=== PATIENT | female | born 1965 | race African-American/Black ===

== ENCOUNTER 2019-01-31 21:07 | Emergency (ER) | payer MEDICAID, OTHER ==
[~2019-01-31] VITALS: Ht 170.2 cm; Wt 65.8 kg
[~2019-01-31 21:07] MED LIST: ATENOLOL50 MG ORAL; BACTRIM DS TAB1 EAC1 ORAL; BACTRIM-DS1 EA ORAL; CEPHALEXIN500 MG ORAL; HYDROCHLOROTH12.5 M2 ORAL; HYDROCODON-ACE1 EA15 ORAL; NKM; PERCOCET 5-3251 EACH PO
--- NOTE | 2019-01-31 21:38 | Emergency Room Report ---
History of Present Illness General Chief Complaint: Hypertension Source: Patient Present Illness HPI Presents with 1 week of headache, left arm pain and a strange feeling in her chest. She has been off of blood pressure medicine for over a year. She used to take atenolol and clonidine. She just ran out and stopped taking it. The headache is frontal, pounding and 8/10 and constant. The feeling in her arm is intermittent and does not seem to be brought on by exertion. She denies any previous cardiac disease. No fevers, chills, productive cough, nausea, vomiting , diarrhea, dysuria. The patient is postmenopausal and has some irregular bleeding that is intermittent. She has not been evaluated for that. Increased stress in her life. Her son was arrested yesterday. She denies any suicidal or homicidal ideation. Allergies: Coded Allergies: No Known Allergies (Unverified , 01/31/19) Patient History Past Medical History: see triage record Social History: Reports: smoking, drug use - CT toxicology screen Social History Narrative Boyfriend brought her - friend of son staying with her (who stole RN car and was arrested) Reviewed Nursing Documentation: PMH: Agreed; PSxH: Agreed Nursing Documentation-PMH Past Medical History: No History, Except For Hx Cardiac Problems: No Hx Hypertension: Yes Hx COPD: No - bronchitis Hx Cancer: No Hx Gastrointestinal Problems: Yes Hx Neurological Problems: No Review of Systems All Other Systems: negative except mentioned in HPI Physical Exam Vital Signs Date Time Temp Pulse Resp B/P (MAP) Pulse Ox O2 Delivery O2 Flow Rate FiO2 01/31/19 21:16 98.4 88 18 206/113 (144) 94 Room Air Sp02 EP Interpretation: reviewed, normal General Appearance: well appearing, no apparent distress, GCS 15, other - Smells of tobacco Head: normocephalic Eyes: bilateral eye normal inspection, bilateral eye PERRL ENT: moist mucus membranes - Poor dentition Neck: supple Respiratory: chest non-tender, lungs clear, normal breath sounds Cardiovascular #1: regular rate, rhythm, no edema Cardiovascular #2: 2+ radial (R) Gastrointestinal: normal inspection, normal bowel sounds, non tender, no mass, non-distended Musculoskeletal: back normal, gait/station normal, normal range of motion Neurologic: alert, oriented x3, film coater III-XII nml as tested, motor strength/tone normal, cerebellar normal, normal gait, speech normal Psychiatric: mood/affect normal Skin: normal inspection, warm/dry Medical Decision Making Diagnostic Impression: Primary Impression: Hypertension Qualified Codes: I10 - Essential (primary) hypertension Additional Impressions: UTI (urinary tract infection) Qualified Codes: N30.00 - Acute cystitis without hematuria Renal insufficiency Substance abuse ER Course Patient presents with chest pain rating to her left arm, headache and uncontrolled hypertension. Differential includes hypertensive urgency, malignant hypertension, renal failure, acute myocardial infarction amongst others. The patient will be evaluated with EKG, chest x-ray and labs. The patient will be treated with Reglan, Benadryl, Toradol, atenolol and clonidine. EKG without injury. Chest x-ray no infiltrates normal heart size. Labs significant for normal CBC, CMP with elevated creatinine, BNP minimally elevated , urinalysis with pyuria. Keflex given. Pain is improved. Blood pressure improved. Discussed with patient laboratory findings as well as the need to stop drugs. Patient stable for outpatient observation and treatment. Laboratory Tests Test 01/31/19 21:45 01/31/19 23:55 White Blood Count 7.0 K/UL (4.8-10.8) Red Blood Count 4.43 M/UL (4.20-5.40) Hemoglobin 13.0 G/DL (12.0-16.0) Hematocrit 37.7 % (37.0-47.0) Mean Corpuscular Volume 85 FL (80-99) Mean Corpuscular Hemoglobin 29.3 PG (27.0-31.0) Mean Corpuscular Hemoglobin Concent 34.4 G/DL (32.0-36.0) Red Cell Distribution Width 10.8 % (11.6-14.8) L Platelet Count 220 K/UL (150-450) Mean Platelet Volume 7.0 FL (6.5-10.1) Neutrophils (%) (Auto) 66.3 % (45.0-75.0) Lymphocytes (%) (Auto) 25.5 % (20.0-45.0) Monocytes (%) (Auto) 5.8 % (1.0-10.0) Eosinophils (%) (Auto) 1.3 % (0.0-3.0) Basophils (%) (Auto) 1.2 % (0.0-2.0) Prothrombin Time 10.4 SEC (9.30-11.50) Prothrombin Time INR 1.0 (0.9-1.1) PTT 28 SEC (23-33) Sodium Level 143 MMOL/L (136-145) Potassium Level 3.4 MMOL/L (3.5-5.1) L Chloride Level 102 MMOL/L (98-107) Carbon Dioxide Level 31 MMOL/L (21-32) Anion Gap 10 mmol/L (5-15) Blood Urea Nitrogen 16 mg/dL (7-18) Creatinine 1.7 MG/DL (0.55-1.30) H Estimate Glomerular Filtration Rate 38.2 mL/min (>60) Glucose Level 96 MG/DL (74-106) Calcium Level 9.2 MG/DL (8.5-10.1) Total Bilirubin 0.4 MG/DL (0.2-1.0) Aspartate Amino Transferase (AST) 21 U/L (15-37) Alanine Aminotransferase (ALT) 28 U/L (12-78) Alkaline Phosphatase 180 U/L (46-116) H Total Creatine Kinase 111 U/L (26-308) Troponin I 0.000 ng/mL (0.000-0.056) Pro-B-Type Natriuretic Peptide 191 pg/mL (0-125) H Total Protein 7.9 G/DL (6.4-8.2) Albumin 4.3 G/DL (3.4-5.0) Globulin 3.6 g/dL Albumin/Globulin Ratio 1.2 (1.0-2.7) Urine Color Pale yellow Urine Appearance Slightly cloudy Urine pH 7 (4.5-8.0) Urine Specific [place] 1.010 (1.005-1.035) Urine Protein 2+ (NEGATIVE) H Urine Glucose (UA) Negative (NEGATIVE) Urine Ketones Negative (NEGATIVE) Urine Blood 3+ (NEGATIVE) H Urine Nitrite Negative (NEGATIVE) Urine Bilirubin Negative (NEGATIVE) Urine Urobilinogen 1 MG/DL (0.0-1.0) H Urine Leukocyte Esterase 3+ (NEGATIVE) H Urine RBC 20-30 /HPF (0 - 2) H Urine WBC Tntc /HPF (0 - 2) H Urine Squamous Epithelial Cells Few /LPF (NONE/OCC) Urine Bacteria Many /HPF (NONE) H Urine Opiates Screen Negative (NEGATIVE) Urine Barbiturates Screen Negative (NEGATIVE) Phencyclidine (PCP) Screen Negative (NEGATIVE) Urine Amphetamines Screen Negative (NEGATIVE) Urine Benzodiazepines Screen Negative (NEGATIVE) Urine Cocaine Screen Positive (NEGATIVE) H Urine Marijuana (THC) Screen Positive (NEGATIVE) H EKG Diagnostic Results Rate: normal Rhythm: NSR ST Segments: no acute changes Rhythm Strip Diag. Results EP Interpretation: yes Rhythm: NSR, no PVC's, no ectopy Chest X-Ray Diagnostic Results Chest X-Ray Diagnostic Results : Chest X-Ray Ordered: Yes # of Views/Limited/Complete: 1 View Indication: Other EP Interpretation: Yes Interpretation: no consolidation, no effusion, no pneumothorax Impression: No acute disease Electronically Signed by: Electronically signed by Kelby Bagley MD Last Vital Signs Date Time Temp Pulse Resp B/P (MAP) Pulse Ox O2 Delivery O2 Flow Rate FiO2 02/01/19 03:02 98.4 67 14 152/88 100 Room Air Status: improved Disposition: HOME, SELF-CARE Condition: Improved Scripts Albuterol Sulfate* (ALBUTEROL SULFATE MDI*) 8.5 Gm Hfa.aer.ad 2 PUFF INH Q6H, #1 EA 0 Refills Prov: Kelby Bagley MD 02/01/19 Cephalexin* (KEFLEX*) 500 Mg Capsule 500 MG ORAL EVERY 6 HOURS, #28 CAP Prov: Kelby Bagley MD 02/01/19 Clonidine Hcl* (CATAPRES*) 0.1 Mg Tablet 0.1 MG ORAL EVERY 12 HOURS, #60 TAB Prov: Kelby Bagley MD 02/01/19 Atenolol* (TENORMIN*) 50 Mg Tablet 50 MG ORAL DAILY, #30 TAB Prov: Kelby Bagley MD 02/01/19 Kelby Bagley MD Jan 31, 2019 21:38
[2019-01-31 21:45] VITALS: BP 185/111
[2019-01-31] MEDS ORDERED: Ketorolac 30mg Inj IV ONE (21:45)
[2019-01-31] MEDS ORDERED: DiphenhydrAMINE 50mg/ml Inj IVP ONE (21:45)
[2019-01-31] MEDS ORDERED: Metoclopramide 10mg/2ml Inj IVP ONE (21:45)
--- NOTE | 2019-01-31 21:45 | NUR ---
ED Nurse Note: RECIEVED PT FROM HOME, HERE WITH C/O HEADACHE WITH DIZZINESS AND HTN, PT HAS BEEN NON-COMPLIANT WITH MEDS FOR ABOUT 3 MONTHS, DENIES CP, OR SOB, PT IS AMBULATORY AND UNDER A LOT OF STRESS, PT IS CURRENTLY ON PHONE WITH SON IN [facility]ITENTI[facility] TODAY, DENIES ANY OTHER COMPLAINTS, WILL WAIT FOR PT TO GOWN TO PLACE ON CARDIAC MONITORING, PT ASK FOR A MINUTE TO GET SELF TOGETHER FIRST.
[2019-01-31 21:57] LABS: BASOPHILS % (AUTO) 1.2 % (0.0-2.0); EOSINOPHILS % (AUTO) 1.3 % (0.0-3.0); HEMATOCRIT 37.7 % (37.0-47.0); LYMPHOCYTES % (AUTO) 25.5 % (20.0-45.0); MEAN CORPUSCULAR VOLUME 85 FL (80-99); MONOCYTES % (AUTO) 5.8 % (1.0-10.0); NEUTROPHILS % (AUTO) 66.3 % (45.0-75.0); PLATELET COUNT 220 K/UL (150-450); RED BLOOD COUNT 4.43 M/UL (4.20-5.40); RED CELL DISTRIBUTION WIDTH 10.8 % (11.6-14.8)
[2019-01-31 22:07] LABS: ANION GAP 10 mmol/L (5-15); BLOOD UREA NITROGEN 16 mg/dL (7-18); CALCIUM 9.2 MG/DL (8.5-10.1); CARBON DIOXIDE 31 MMOL/L (21-32); CHLORIDE 102 MMOL/L (98-107); CREATININE 1.7 MG/DL (0.55-1.30); POTASSIUM 3.4 MMOL/L (3.5-5.1); SODIUM 143 MMOL/L (136-145)
[2019-01-31 22:18] LABS: ALANINE AMINOTRANSFERASE 28 U/L (12-78); ALBUMIN 4.3 G/DL (3.4-5.0); ALBUMIN/GLOBULIN RATIO 1.2 (1.0-2.7); ALKALINE PHOSPHATASE 180 U/L (46-116); ASPARTATE AMINO TRANSFERASE 21 U/L (15-37); BILIRUBIN,TOTAL 0.4 MG/DL (0.2-1.0); CREATINE KINASE 111 U/L (26-308)
--- NOTE | 2019-01-31 23:15 | NUR ---
ED Nurse Note: MEDS GIVEN FOR PAIN EFFECTIVE WITH HEADACHE AT 10/28, B/P IS DECREASING, IV SITE PATENT, PT RESTING IN BED QUIETLY ON MONITORING, WILL CONTINUE TO CLOSELY MONITOR.
[2019-01-31 23:30] VITALS: BP 160/89
[2019-02-01 00:03] LABS: APPEARANCE,URINE SLIGHTLY CLOUDY; BILIRUBIN, URINE NEGATIVE (NEGATIVE); COLOR,URINE PALE YELLOW; GLUCOSE, URINE (UA) NEGATIVE (NEGATIVE); KETONES,URINE NEGATIVE (NEGATIVE); LEUKOCYTE ESTERASE ,URINE 3+ (NEGATIVE); NITRITE,URINE NEGATIVE (NEGATIVE); PH,URINE 7 (4.5-8.0); PROTEIN,URINE 2+ (NEGATIVE); UROBILINOGEN,URINE 1 MG/DL (0.0-1.0)
[2019-02-01] MEDS ORDERED: Cephalexin 500mg cap ORAL ONE (01:00)
[2019-02-01 01:30] VITALS: BP 159/95
[2019-02-01] MEDS ORDERED: ATENOLOL50 MG ORAL (02:46)
[2019-02-01] MEDS ORDERED: CATAPRES0.1 MG ORAL (02:46)
[2019-02-01] MEDS ORDERED: CEPHALEXIN500 MG ORAL (02:55)
[2019-02-01] MEDS ORDERED: ALBUTEROL SULF8.5 GM INH (02:55)
[2019-02-01 03:02] VITALS: BP 152/88
--- NOTE | 2019-02-01 03:02 | NUR ---
ER DISCHARGE NOTE: Patient is cleared to be discharged per ERMD, pt is aox4, on room air, with stable vital signs. pt was given dc and prescription instructions, pt was able to verbalize understanding, pt id band and iv site removed without complications. pt is able to ambulate with steady gait. pt took all belongings.
--- NOTE | 2019-02-01 09:51 | Diagnostic Imaging Report ---
Indication: Chest pain Technique: One view of the chest Comparison: none Findings: The heart is upper limits normal in size. Lungs and pleural spaces are clear. Impression: No acute process
--- NOTE | 2019-02-03 13:51 | Cardiology Report ---
APPROVED REPORT EKG Measurement Heart [id number] Normal sinus rhythm Normal ECG
== END 2019-02-01 03:03 | disposition home or self-care (01) ==
LOC: EMR 21:31
DX: I10 Essential (primary) hypertension (principal); N30.00 Acute cystitis without hematuria; N28.9 Disorder of kidney and ureter, unspecified; F19.10 Other psychoactive substance abuse, uncomplicated; R51 Headache
CPT/HCPCS: 36415; 71045; 80053; 80307; 81003; 82550; 83880; 84484; 85025; 85610; 85730; 87086; 93005; 96374; 96375; 99284; J1200; J1885; J2765

== ENCOUNTER 2020-01-17 20:55 | Inpatient (IN) | payer MEDICAID ==
[~2020-01-17] VITALS: Ht 170.2 cm; Wt 68.0 kg
[~2020-01-17 20:55] MED LIST changes: +ALBUTEROL SULF8.5 GM INH; +CATAPRES0.1 MG ORAL
[2020-01-17 21:10] VITALS: BP 149/103
--- NOTE | 2020-01-17 21:23 | Emergency Room Report ---
History of Present Illness General Chief Complaint: General Complaint Source: Patient Present Illness HPI Patient is a 54-year-old female denies any significant past medical history who presents to the ER complaining of slurred speech and drooling since yesterday over 24 hours ago. Patient complains of generalized weakness but denies any focal weakness. Patient states that she did cocaine 3 days prior to the onset of her symptoms. She denies any headache or blurry vision. She denies any history of similar symptoms. Patient states that she can walk without any difficulty. She denies any dizziness. She denies any abdominal pain, shortness of breath or vomiting. Patient states that she has intermittent episodes of left-sided chest pain. 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: No Patient History Last Menstrual Period: NA Reviewed Nursing Documentation: PMH: Agreed; PSxH: Agreed Nursing Documentation-PMH Past Medical History: No Stated History Hx Cardiac Problems: No Hx Hypertension: Yes Hx COPD: No - bronchitis Hx Cancer: No Hx Gastrointestinal Problems: Yes Hx Neurological Problems: No Review of Systems All Other Systems: negative except mentioned in HPI Physical Exam Vital Signs Date Time Temp Pulse Resp B/P (MAP) Pulse Ox O2 Delivery O2 Flow Rate FiO2 01/17/20 20:48 98.2 77 18 149/103 (118) 98 Room Air Sp02 EP Interpretation: reviewed, normal General Appearance: alert, GCS 15, non-toxic, mild distress Eyes: bilateral eye normal inspection, bilateral eye PERRL ENT: other - Left facial droop with tongue deviation forehead sparing patient drooling and with significant slurred speech Neck: full range of motion, supple/symm/no masses Respiratory: chest non-tender, lungs clear, normal breath sounds, speaking full sentences Cardiovascular #1: regular rate, rhythm, no edema Gastrointestinal: normal bowel sounds, non tender, soft, non-distended, no guarding, no rebound Rectal: deferred Genitourinary: normal inspection, no CVA tenderness Musculoskeletal: back normal, normal range of motion, calf tenderness, gait/ station normal, non-tender Neurologic: alert, motor strength/tone normal, oriented x3, sensory intact, responsive Psychiatric: no suicidal/homicidal ideation Skin: no rash Lymphatic: no adenopathy Procedures Critical Care Time Critical Care Time Total critical care time: Approximately 35 minutes. Due to a high probability of clinically significant, life threatening deterioration, the patient required my highest level of preparedness to intervene emergently and I personally spent this critical care time directly and personally managing the patient. This critical care time included obtaining a history; examining the patient; pulse oximetry; ordering and review of studies; arranging urgent treatment with development of a management plan; evaluation of patient's response to treatment ; frequent reassessment; and, discussions with other providers.This critical care time was performed to assess and manage the high probability of imminent, life-threatening deterioration that could result in multi-organ failure. It was exclusive of separately billable procedures and treating other patients and teaching time. Please see MDM section and the rest of the note for further information on patient assessment and treatment. Medical Decision Making Diagnostic Impression: Primary Impression: Acute renal failure Additional Impression: CVA (cerebral vascular accident) ER Course Patient's CT demonstrates no acute intracranial pathology. Patient will require MRIs. Patient symptoms been present for greater than 24 hours. Patient given 162 mg of oral aspirin. EKG Diagnostic Results EKG Time: 21:00 EP Interpretation: MD Andrea Rate: normal - 79 Rhythm: NSR ST Segments: no acute changes ASA given to the pt in ED: No Rhythm Strip Diag. Results Rhythm Strip Time: 21:01 EP Interpretation: yes Rate: 79 Rhythm: NSR, no PVC's, no ectopy Chest X-Ray Diagnostic Results Chest X-Ray Diagnostic Results : Chest X-Ray Ordered: Yes # of Views/Limited/Complete: 1 View Indication: Other - acute stroke EP Interpretation: Yes PA Xray: Interpretation reviewed, and agrees with findings. Interpretation: no consolidation, no effusion, no pneumothorax, no acute cardiopulmonary disease Impression: No acute disease Electronically Signed by: MD Yakelin Last Vital Signs Date Time Temp Pulse Resp B/P (MAP) Pulse Ox O2 Delivery O2 Flow Rate FiO2 01/17/20 21:10 98.2 18 149/103 98 Room Air 01/17/20 21:10 77 Condition: Critical Signed Out To: Dr. Mojica at [address] M.D. January 17, 2020 21:23
[2020-01-17 21:38] LABS: BASOPHILS % (AUTO) 0.9 % (0.0-2.0); EOSINOPHILS % (AUTO) 0.3 % (0.0-3.0); HEMATOCRIT 39.5 % (37.0-47.0); HEMOGLOBIN 12.8 G/DL (12.0-16.0); LYMPHOCYTES % (AUTO) 11.5 % (20.0-45.0); MEAN CORPUSCULAR VOLUME 88 FL (80-99); MONOCYTES % (AUTO) 3.9 % (1.0-10.0); NEUTROPHILS % (AUTO) 83.4 % (45.0-75.0); PLATELET COUNT 202 K/UL (150-450); RED BLOOD COUNT 4.46 M/UL (4.20-5.40); RED CELL DISTRIBUTION WIDTH 11.6 % (11.6-14.8); WHITE BLOOD COUNT 9.2 K/UL (4.8-10.8)
--- NOTE | 2020-01-17 21:44 | Diagnostic Imaging Report ---
EXAM: CT Head Without Intravenous Contrast CLINICAL HISTORY: AMS TECHNIQUE: Axial computed tomography images of the head/brain without intravenous contrast. CTDI is 53.4 mGy and DLP is 988.4 mGy-cm. One or more of the following dose reduction techniques were used: automated exposure control, adjustment of the mA and/or kV according to patient size, use of iterative reconstruction technique. COMPARISON: None available. FINDINGS: Brain: Unremarkable. No hemorrhage. No significant white matter disease. No edema. Ventricles: Area of hypodensity extending from the left frontal portion of the lateral ventricle extending laterally and inferiorly. This may represent sequela of prior ischemic process. Bones/joints: Unremarkable. No acute fracture. Soft tissues: Unremarkable. Sinuses: Unremarkable as visualized. No acute sinusitis. Mastoid air cells: Unremarkable as visualized. No mastoid effusion. IMPRESSION: No acute findings in the head/brain.
--- NOTE | 2020-01-17 21:45 | Diagnostic Imaging Report ---
EXAM: XR Chest, 1 View CLINICAL HISTORY: PAIN TECHNIQUE: Frontal portable view of the chest. COMPARISON: Chest radiograph dated 01/31/2019 FINDINGS: Lungs: Unremarkable. No consolidation. Pleural space: Unremarkable. No pneumothorax. Heart: Unremarkable. No cardiomegaly. Mediastinum: Unremarkable. Bones/joints: Unremarkable. IMPRESSION: No acute cardiopulmonary disease.
[2020-01-17 21:46] LABS: ANION GAP 13 mmol/L (5-15); BLOOD UREA NITROGEN 33 mg/dL (7-18); CALCIUM 9.9 MG/DL (8.5-10.1); CARBON DIOXIDE 24 MMOL/L (21-32); CHLORIDE 102 MMOL/L (98-107); CREATININE 1.9 MG/DL (0.55-1.30); POTASSIUM 4.1 MMOL/L (3.5-5.1); SODIUM 138 MMOL/L (136-145)
[2020-01-17 21:57] LABS: ALANINE AMINOTRANSFERASE 99 U/L (12-78); ALBUMIN 3.8 G/DL (3.4-5.0); ALBUMIN/GLOBULIN RATIO 0.9 (1.0-2.7); ALKALINE PHOSPHATASE 205 U/L (46-116); ASPARTATE AMINO TRANSFERASE 54 U/L (15-37); BILIRUBIN,TOTAL 0.7 MG/DL (0.2-1.0)
[2020-01-17] MEDS ORDERED: Aspirin Baby 81mg ORAL ONE (22:00)
[2020-01-17] MEDS ORDERED: Milk of Magnesia 30ml Ud ORAL PRN (22:45)
[2020-01-17 22:52] LABS: APPEARANCE,URINE SLIGHTLY CLOUDY; BILIRUBIN, URINE NEGATIVE (NEGATIVE); GLUCOSE, URINE (UA) NEGATIVE (NEGATIVE); KETONES,URINE 3+ (NEGATIVE); LEUKOCYTE ESTERASE ,URINE 3+ (NEGATIVE); NITRITE,URINE NEGATIVE (NEGATIVE); PH,URINE 5 (4.5-8.0); PROTEIN,URINE 2+ (NEGATIVE); UROBILINOGEN,URINE NORMAL MG/DL (0.0-1.0)
[2020-01-17 22:54] LABS: COLOR,URINE YELLOW
[2020-01-17 23:09] VITALS: BP 150/76
[2020-01-18] VITALS: BP 158/89
[2020-01-18] MEDS: Enoxaparin 40mg Inj SUBQ SCH ×2 (00:40→21:00)
[2020-01-18 04:00] VITALS: BP 142/73
[2020-01-18 08:00] VITALS: BP 145/84
[2020-01-18] MEDS: Aspirin Baby 81mg ORAL SCH (08:22)
[2020-01-18 08:41] LABS: HEMOGLOBIN 12.7 G/DL (12.0-16.0); MEAN CORPUSCULAR VOLUME 83 FL (80-99); PLATELET COUNT 185 K/UL (150-450); RED BLOOD COUNT 4.34 M/UL (4.20-5.40); RED CELL DISTRIBUTION WIDTH 10.5 % (11.6-14.8); WHITE BLOOD COUNT 6.4 K/UL (4.8-10.8)
[2020-01-18 09:15] LABS: CHOLESTEROL 147 MG/DL (< 200); HDL CHOLESTEROL 42 MG/DL (40-60); TRIGLYCERIDES 64 MG/DL (30-150)
--- NOTE | 2020-01-18 09:52 | History and Physical ---
History of Present Illness General Date patient seen: January 18, 2020 Time patient seen: 08:45 Reason for Hospitalization: slurred speech Present Illness HPI 54-year-old female denies any significant past medical history who presents to the ER complaining of slurred speech and drooling since yesterday over 24 hours ago per ER evaluation. Patient complains of generalized weakness but denies any focal weakness. Patient stated that she did cocaine ( smoking it ) 3 days prior to the onset of her symptoms. She denies any headache or blurry vision. She denies any history of similar symptoms. Patient states that she can walk without any difficulty. She denies any dizziness. She denies any abdominal pain, shortness of breath or vomiting. Patient states that she has intermittent episodes of left-sided chest pain. Admission was requested. ASA was given. Allergies: Coded Allergies: No Known Allergies (Unverified , 01/31/19) COVID-19 Screening Contact w/high risk pt: No Recent Travel to affected area: No Experienced COVID-19 symptoms?: Yes COVID-19 symptoms experienced: Cough Medication History Scheduled Albuterol Sulfate* (Albuterol Sulfate Mdi*), 2 PUFF INH Q6H Atenolol* (Tenormin*), 50 MG ORAL DAILY, (Reported) Atenolol* (Tenormin*), 50 MG ORAL DAILY Cephalexin* (Keflex*), 500 MG ORAL EVERY 6 HOURS Clonidine Hcl* (Catapres*), 0.1 MG ORAL EVERY 12 HOURS Hydrochlorothiazide* (Hydrochlorothiazide*), Unknown Dose ORAL DAILY, (Reported) Trimethoprim/Sulfamethoxazole 160/800* (Bactrim Ds Tablet*), 1 TAB ORAL Q12H Scheduled PRN Hydrocodone/Acetaminophen 5-325* (Hydrocodone/Acetaminophen 5-325*), 1 TAB ORAL Q6H PRN for For Pain Patient History Healthcare decision maker Resuscitation status Advanced Directive on File Review of Systems All Other Systems: negative except mentioned in HPI Physical Exam General Appearance: WD/WN Lines, tubes and drains: peripheral HEENT: normocephalic, atraumatic Neck: non-tender Respiratory/Chest: lungs clear Cardiovascular/Chest: normal rate Abdomen: non tender Extremities: non-tender Skin Exam: normal pigmentation Neurologic: other - slurred speech Last 24 Hour Vital Signs Date Time Temp Pulse Resp B/P (MAP) Pulse Ox O2 Delivery O2 Flow Rate FiO2 01/18/20 08:00 68 01/18/20 08:00 97.5 71 18 145/84 (104) 95 01/18/20 04:00 59 01/18/20 04:00 98.0 75 20 142/73 (96) 97 01/18/20 00:20 Room Air 01/18/20 00:00 98.3 79 21 158/89 (112) 95 01/18/20 00:00 77 01/17/20 23:30 98.2 65 18 150/76 98 Room Air 01/17/20 23:09 98.2 65 18 150/76 98 Room Air 01/17/20 21:10 98.2 18 149/103 98 Room Air 01/17/20 21:10 77 18 Room Air 01/17/20 20:48 98.2 77 18 149/103 (118) 98 Room Air Intake and Output 01/17/20 01/18/20 19:00 07:00 Intake Total 0 ml Output Total 0 ml Balance 0 ml Intake Oral 0 ml Output Urine Total 0 ml Laboratory Tests Test 01/17/20 21:17 01/17/20 22:09 01/18/20 07:30 White Blood Count 9.2 K/UL (4.8-10.8) 6.4 K/UL (4.8-10.8) Red Blood Count 4.46 M/UL (4.20-5.40) 4.34 M/UL (4.20-5.40) Hemoglobin 12.8 G/DL (12.0-16.0) 12.7 G/DL (12.0-16.0) Hematocrit 39.5 % (37.0-47.0) 36.0 % (37.0-47.0) L Mean Corpuscular Volume 88 FL (80-99) 83 FL (80-99) Mean Corpuscular Hemoglobin 28.6 PG (27.0-31.0) 29.2 PG (27.0-31.0) Mean Corpuscular Hemoglobin Concent 32.4 G/DL (32.0-36.0) 35.2 G/DL (32.0-36.0) Red Cell Distribution Width 11.6 % (11.6-14.8) 10.5 % (11.6-14.8) L Platelet Count 202 K/UL (150-450) 185 K/UL (150-450) Mean Platelet Volume 10.5 FL (6.5-10.1) H 8.2 FL (6.5-10.1) Neutrophils (%) (Auto) 83.4 % (45.0-75.0) H % (45.0-75.0) Lymphocytes (%) (Auto) 11.5 % (20.0-45.0) L % (20.0-45.0) Monocytes (%) (Auto) 3.9 % (1.0-10.0) % (1.0-10.0) Eosinophils (%) (Auto) 0.3 % (0.0-3.0) % (0.0-3.0) Basophils (%) (Auto) 0.9 % (0.0-2.0) % (0.0-2.0) Prothrombin Time 11.5 SEC (9.30-11.50) Prothromb Time International Ratio 1.0 (0.9-1.1) Activated Partial Thromboplast Time 29 SEC (23-33) Sodium Level 138 MMOL/L (136-145) Potassium Level 4.1 MMOL/L (3.5-5.1) Chloride Level 102 MMOL/L (98-107) Carbon Dioxide Level 24 MMOL/L (21-32) Anion Gap 13 mmol/L (5-15) Blood Urea Nitrogen 33 mg/dL (7-18) H Creatinine 1.9 MG/DL (0.55-1.30) H Estimat Glomerular Filtration Rate 33.6 mL/min (>60) Glucose Level 111 MG/DL (74-106) H Calcium Level 9.9 MG/DL (8.5-10.1) Magnesium Level 1.8 MG/DL (1.8-2.4) Pending Total Bilirubin 0.7 MG/DL (0.2-1.0) Aspartate Amino Transf (AST/SGOT) 54 U/L (15-37) H Alanine Aminotransferase (ALT/SGPT) 99 U/L (12-78) H Alkaline Phosphatase 205 U/L (46-116) H Troponin I 0.000 ng/mL (0.000-0.056) Pro-B-Type Natriuretic Peptide 300 pg/mL (0-125) H Total Protein 8.0 G/DL (6.4-8.2) Albumin 3.8 G/DL (3.4-5.0) Globulin 4.2 g/dL Albumin/Globulin Ratio 0.9 (1.0-2.7) L Urine Color Yellow Urine Appearance Slightly cloudy Urine pH 5 (4.5-8.0) Urine Specific [place] 1.025 (1.005-1.035) Urine Protein 2+ (NEGATIVE) H Urine Glucose (UA) Negative (NEGATIVE) Urine Ketones 3+ (NEGATIVE) H Urine Blood 2+ (NEGATIVE) H Urine Nitrite Negative (NEGATIVE) Urine Bilirubin Negative (NEGATIVE) Urine Urobilinogen Normal MG/DL (0.0-1.0) Urine Leukocyte Esterase 3+ (NEGATIVE) H Urine RBC 2-4 /HPF (0 - 2) H Urine WBC 20-30 /HPF (0 - 2) H Urine Squamous Epithelial Cells Many /LPF (NONE/OCC) H Urine Bacteria Moderate /HPF (NONE) H Urine Opiates Screen Negative (NEGATIVE) Urine Barbiturates Screen Negative (NEGATIVE) Phencyclidine (PCP) Screen Negative (NEGATIVE) Urine Amphetamines Screen Negative (NEGATIVE) Urine Benzodiazepines Screen Negative (NEGATIVE) Urine Cocaine Screen Positive (NEGATIVE) H Urine Marijuana (THC) Screen Negative (NEGATIVE) Neutrophils % (Manual) Pending Lymphocytes % (Manual) Pending Platelet Estimate Pending Platelet Morphology Pending Hemoglobin A1c 5.8 % (4.3-6.0) Triglycerides Level Pending Cholesterol Level Pending LDL Cholesterol Pending HDL Cholesterol Pending Cholesterol/HDL Ratio Pending Thyroid Stimulating Hormone (TSH) Pending Microbiology Date/Time Source Procedure Growth Status 01/17/20 22:09 Urine,Clean Catch Urine Culture - Preliminary NO GROWTH Resulted Height (Feet): 5 Height (Inches): 7.00 Weight (Pounds): 150 Medications Current Medications Medications (Trade) Dose Ordered Sig/Heather Route PRN Reason Start Time Stop Time Status Last Admin Dose Admin Acetaminophen (Tylenol) 650 mg Q4H PRN ORAL Mild Pain (Pain Scale 1-3) 01/17/20 22:45 02/16/20 22:44 Aspirin (ASA) 81 mg DAILY ORAL 01/18/20 09:00 03/03/20 08:59 01/18/20 08:22 Dextrose (Dextrose 50%) 25 ml Q30M PRN IV Hypoglycemia 01/17/20 22:45 04/16/20 22:44 Dextrose (Dextrose 50%) 50 ml Q30M PRN IV Hypoglycemia 01/17/20 22:45 04/16/20 22:44 Enoxaparin Sodium (Lovenox) 40 mg QHS SUBQ 01/17/20 23:45 04/16/20 23:44 01/18/20 00:40 Famotidine (Pepcid) 20 mg DAILY ORAL 01/18/20 09:00 04/17/20 08:59 01/18/20 08:22 Magnesium Hydroxide (Mom) 30 ml HSPRN PRN ORAL Constipation 01/17/20 22:45 02/16/20 22:44 Ondansetron HCl (Zofran) 4 mg Q6H PRN IVP Nausea & Vomiting 01/17/20 22:45 02/16/20 22:44 Sodium Chloride 1,000 ml @ 75 mls/hr DAILY IV 01/18/20 00:00 02/17/20 00:00 01/18/20 08:23 Temazepam (Restoril) 15 mg DAILYPRN PRN ORAL Insomnia 01/17/20 22:45 01/24/20 22:44 Assessment/Plan Status: not improved Assessment/Plan: 54-year-old female # CVA with slurred speech in the setting of prior cocaine use PT OT ST evaluation MRI brain ordered - CT head is negative and normal ASA will be continued A1c, lipids ordered # Reported history of Hypertensive heart disease Patient ran out of her home medication ( Atenolol 50 mg and Clonidine ? dose ) Monitor and permissive hypertension unless SBP > 180 # Cocaine use Education provided # DVT ppx # GI ppx FULL CODE Shanita Tristan MD January 18, 2020 09:52
[2020-01-18 11:52] VITALS: BP 154/87
[2020-01-18 16:00] VITALS: BP 140/99
[2020-01-18 20:00] VITALS: BP 142/71
[2020-01-19] VITALS: BP 165/90
[2020-01-19 04:00] VITALS: BP 159/88
[2020-01-19 08:00] VITALS: BP 165/91
[2020-01-19] MEDS: Aspirin Baby 81mg ORAL SCH (09:05)
--- NOTE | 2020-01-19 10:44 | General Progress Note ---
Assessment/Plan Status: not improved Assessment/Plan: 54-year-old female # CVA with slurred speech in the setting of prior cocaine use PT evaluation was completed and cleared. ST evaluation pending. MRI brain ordered - CT head is negative and normal TTE with normal EF 65% and normal valvular function. ASA will be continued Add Atorvastatin. LDL 96 ( goal less than 70 due to CVA) A1c normal. # Reported history of Hypertensive heart disease Patient ran out of her home medication ( Atenolol 50 mg and Clonidine ? dose ) Monitor and will resume Atenolol 25 mg daily today. # Cocaine use Education provided # CKD stage 3 due to Hypertension # Hypertensive nephropathy. Creatinine 1.9 Pending today result Monitor. # DVT ppx # GI ppx FULL CODE Subjective Date patient seen: January 19, 2020 Time patient seen: 10:20 ROS Limited/Unobtainable: No Allergies: Coded Allergies: No Known Allergies (Unverified , 01/31/19) All Systems: reviewed and negative except above Subjective Feels the same. Slurred speech present. Objective Last 24 Hour Vital Signs Date Time Temp Pulse Resp B/P (MAP) Pulse Ox O2 Delivery O2 Flow Rate FiO2 01/19/20 09:00 Room Air 01/19/20 08:00 99.9 81 20 165/91 (115) 99 01/19/20 08:00 74 01/19/20 04:00 57 01/19/20 04:00 98.0 71 21 159/88 (111) 98 01/19/20 00:00 75 01/19/20 00:00 98.2 76 20 165/90 (115) 100 01/18/20 21:00 Room Air 01/18/20 20:00 98.9 78 19 142/71 (94) 99 01/18/20 20:00 91 01/18/20 16:00 84 01/18/20 16:00 97.2 84 20 140/99 (113) 95 01/18/20 11:52 96.6 71 20 154/87 (109) 96 Intake and Output 01/18/20 01/19/20 19:00 07:00 Intake Total 1185 ml 900 ml Balance 1185 ml 900 ml Intake Oral 360 ml 600 ml IV Total 825 ml 300 ml # Voids 3 3 Laboratory Tests 01/19/20 10:23: White Blood Count [Pending], Red Blood Count [Pending], Hemoglobin [Pending], Hematocrit [Pending], Mean Corpuscular Volume [Pending], Mean Corpuscular Hemoglobin [Pending], Mean Corpuscular Hemoglobin Concent [Pending], Red Cell Distribution Width [Pending], Platelet Count [Pending], Mean Platelet Volume [ Pending], Neutrophils (%) (Auto) [Pending], Lymphocytes (%) (Auto) [Pending], Monocytes (%) (Auto) [Pending], Eosinophils (%) (Auto) [Pending], Basophils (%) (Auto) [Pending], Sodium Level [Pending], Potassium Level [Pending], Chloride Level [Pending], Carbon Dioxide Level [Pending], Blood Urea Nitrogen [Pending], Creatinine [Pending], Estimat Glomerular Filtration Rate [Pending], Glucose Level [Pending], Calcium Level [Pending] Height (Feet): 5 Height (Inches): 7.00 Weight (Pounds): 150 General Appearance: WD/WN EENT: PERRL/EOMI Neck: non-tender Cardiovascular: normal peripheral pulses Respiratory/Chest: lungs clear Abdomen: non tender Extremities: normal range of motion Edema: trace edema Neurologic: other - slurred speech Skin: normal pigmentation Shanita Tristan MD January 19, 2020 10:43
[2020-01-19 10:45] LABS: BASOPHILS % (AUTO) 1.2 % (0.0-2.0); EOSINOPHILS % (AUTO) 1.3 % (0.0-3.0); HEMATOCRIT 34.1 % (37.0-47.0); HEMOGLOBIN 12.1 G/DL (12.0-16.0); LYMPHOCYTES % (AUTO) 35.1 % (20.0-45.0); MEAN CORPUSCULAR VOLUME 82 FL (80-99); MONOCYTES % (AUTO) 8.7 % (1.0-10.0); NEUTROPHILS % (AUTO) 53.6 % (45.0-75.0); PLATELET COUNT 171 K/UL (150-450); RED BLOOD COUNT 4.17 M/UL (4.20-5.40); RED CELL DISTRIBUTION WIDTH 9.9 % (11.6-14.8); WHITE BLOOD COUNT 6.2 K/UL (4.8-10.8)
[2020-01-19] MEDS ORDERED: Atenolol 25mg tab ORAL SCH (10:45)
[2020-01-19 11:23] LABS: ANION GAP 12 mmol/L (5-15); BLOOD UREA NITROGEN 27 mg/dL (7-18); CALCIUM 9.3 MG/DL (8.5-10.1); CARBON DIOXIDE 24 MMOL/L (21-32); CHLORIDE 105 MMOL/L (98-107); CREATININE 1.4 MG/DL (0.55-1.30); POTASSIUM 3.4 MMOL/L (3.5-5.1); SODIUM 141 MMOL/L (136-145)
[2020-01-19 12:00] VITALS: BP 170/83
[2020-01-19 16:00] VITALS: BP 160/73
[2020-01-19 20:00] VITALS: BP 157/83
[2020-01-19] MEDS: Atorvastatin 20mg tab ORAL SCH (20:20)
[2020-01-19] MEDS: Enoxaparin 40mg Inj SUBQ SCH (20:21)
[2020-01-20] VITALS: BP 161/82
[2020-01-20 04:00] VITALS: BP 163/90
[2020-01-20 07:24] LABS: HEMATOCRIT 31.6 % (37.0-47.0); HEMOGLOBIN 11.3 G/DL (12.0-16.0); LYMPHOCYTES % (AUTO) 43.7 % (20.0-45.0); MEAN CORPUSCULAR VOLUME 82 FL (80-99); MONOCYTES % (AUTO) 9.2 % (1.0-10.0); NEUTROPHILS % (AUTO) 44.1 % (45.0-75.0); PLATELET COUNT 169 K/UL (150-450); RED BLOOD COUNT 3.86 M/UL (4.20-5.40); RED CELL DISTRIBUTION WIDTH 10.1 % (11.6-14.8); WHITE BLOOD COUNT 5.8 K/UL (4.8-10.8)
[2020-01-20 07:43] LABS: ANION GAP 10 mmol/L (5-15); BLOOD UREA NITROGEN 20 mg/dL (7-18); CARBON DIOXIDE 25 MMOL/L (21-32); CHLORIDE 107 MMOL/L (98-107); CREATININE 1.4 MG/DL (0.55-1.30); POTASSIUM 3.4 MMOL/L (3.5-5.1); SODIUM 142 MMOL/L (136-145)
[2020-01-20 08:00] VITALS: BP 170/90
[2020-01-20] MEDS: Aspirin Baby 81mg ORAL SCH (08:18)
--- NOTE | 2020-01-20 11:11 | General Progress Note ---
Assessment/Plan Status: doing well, not improved Assessment/Plan: 54-year-old female # CVA with slurred speech in the setting of prior cocaine use PT evaluation was completed and cleared. ST evaluation pending. Need to finalize diet and exercises for the patient to do. MRI brain pending report today - CT head is negative and normal TTE with normal EF 65% and normal valvular function. ASA will be continued Add Atorvastatin. LDL 96 ( goal less than 70 due to CVA) A1c normal. # Hypertensive heart disease Patient ran out of her home medication ( Atenolol 50 mg and Clonidine ? dose ) Monitor and will resume Atenolol 50 mg daily and Clonidine 0.1 mg daily. Monitor SBP and goal < 140 mmHg prior to dc. # Cocaine use Education provided # CKD stage 3 due to Hypertension # Hypertensive nephropathy. Creatinine 1.9 Pending today result Monitor. # DVT ppx # GI ppx FULL CODE Subjective Date patient seen: Jan 20, 2020 Time patient seen: 11:10 ROS Limited/Unobtainable: No Allergies: Coded Allergies: No Known Allergies (Unverified , 01/31/19) Subjective Feels better today. Able to eat apple sauce. Slurred speech is improved today. ST evaluation still pending. Objective Last 24 Hour Vital Signs Date Time Temp Pulse Resp B/P (MAP) Pulse Ox O2 Delivery O2 Flow Rate FiO2 01/20/20 10:58 170/90 01/20/20 09:00 Room Air 01/20/20 08:33 62 170/90 01/20/20 08:00 99.5 62 20 170/90 (116) 100 01/20/20 07:54 66 01/20/20 04:00 60 01/20/20 04:00 98.3 62 20 163/90 (114) 100 01/20/20 00:00 66 01/20/20 00:00 98.1 65 20 161/82 (108) 98 01/19/20 21:00 Room Air 01/19/20 20:00 98.6 69 19 157/83 (107) 98 01/19/20 20:00 89 01/19/20 16:00 98.6 78 19 160/73 (102) 98 01/19/20 16:00 59 01/19/20 12:00 69 01/19/20 12:00 96.8 63 18 170/83 (112) 99 5/31/20 11:35 63 170/83 Intake and Output 01/19/20 01/20/20 19:00 07:00 Intake Total 1490 ml 1100 ml Balance 1490 ml 1100 ml Intake Oral 140 ml 500 ml IV Total 1350 ml 600 ml # Voids 2 Laboratory Tests 01/19/20 13:50: Urine Random Creatinine [Pending], Urine Random Microalbumin [Pending], Urine Microalbumin/Creatinine Ratio [Pending] 01/20/20 06:30: White Blood Count 5.8, Red Blood Count 3.86L, Hemoglobin 11.3L, Hematocrit 31.6L , Mean Corpuscular Volume 82, Mean Corpuscular Hemoglobin 29.3, Mean Corpuscular Hemoglobin Concent 35.8, Red Cell Distribution Width 10.1L, Platelet Count 169, Mean Platelet Volume 8.0, Neutrophils (%) (Auto) 44.1L, Lymphocytes (%) (Auto) 43.7, Monocytes (%) (Auto) 9.2, Eosinophils (%) (Auto) 2.0, Basophils (%) (Auto) 1.0, Sodium Level 142, Potassium Level 3.4L, Chloride Level 107, Carbon Dioxide Level 25, Anion Gap 10, Blood Urea Nitrogen 20H, Creatinine 1.4H, Estimat Glomerular Filtration Rate 47.6, Glucose Level 80, Calcium Level 9.0 Height (Feet): 5 Height (Inches): 7.00 Weight (Pounds): 150 General Appearance: WD/WN EENT: PERRL/EOMI Neck: non-tender, normal alignment Cardiovascular: normal rate Respiratory/Chest: lungs clear Abdomen: non tender Extremities: normal range of motion Neurologic: other - slight slurred speech Shanita Tristan MD Jan 20, 2020 11:11
--- NOTE | 2020-01-20 11:44 | Diagnostic Imaging Report ---
Indication: Slurred speech Technique: sagittal T1 fast spin echo, axial T1 FLAIR, axial T2 FLAIR, axial T2 FS PROPELLER, axial T2* GRE, axial diffusion weighted images. ADC and exponential ADC maps generated Comparison: Head CT 01/17/2020 Findings: There is a cluster of foci of restricted diffusion involving the left centrum semiovale, diaz radiata, and extending into the external capsule region and parietal operculum. There is also a small cortical focus in the anterior right parietal cortex There is associated increased T2 signal. No evidence of associated hemorrhage. Old lacunar infarcts are seen within the midbrain and raheem bilaterally. These are somewhat numerous. No mass effect nor midline shift. There is age-related enlargement of the ventricles and extra-axial CSF spaces. There is some periventricular deep white matter high T2 signal, consistent with chronic microvascular ischemic change.. Visualized orbits and sinuses are unremarkable. The vascular flow voids are preserved. There is incidental finding of an empty sella. An unusual cystic lesion is seen in the medial right temporal bone. On recent CT scan, this appears to be contiguous with the middle fossa, may represent an unusual arachnoid cyst that has pressure eroded into the temporal bone. Impression: Cluster of acute infarcts in the right basal ganglia, right centrum semiovale parietal operculum, and parietal cortex. Multiple old infarcts, as described Other chronic and age-related changes, as described Unusual cystic area in the medial right temporal bone, may represent an unusual arachnoid cyst Empty sella incidentally noted Findings discussed by phone with patient's nurse at the time of interpretation
[2020-01-20 12:00] VITALS: BP 159/88
[2020-01-20 20:00] VITALS: BP 152/83
[2020-01-20] MEDS: Atorvastatin 20mg tab ORAL SCH (20:39)
[2020-01-20] MEDS: Enoxaparin 40mg Inj SUBQ SCH (20:39)
[2020-01-21] VITALS: BP 155/79
[2020-01-21 04:00] VITALS: BP 161/80
[2020-01-21 07:00] LABS: ANION GAP 8 mmol/L (5-15); BLOOD UREA NITROGEN 15 mg/dL (7-18); CARBON DIOXIDE 27 MMOL/L (21-32); CHLORIDE 106 MMOL/L (98-107); CREATININE 1.3 MG/DL (0.55-1.30); POTASSIUM 3.3 MMOL/L (3.5-5.1); SODIUM 141 MMOL/L (136-145)
[2020-01-21 07:07] LABS: BASOPHILS % (AUTO) 1.3 % (0.0-2.0); HEMATOCRIT 31.1 % (37.0-47.0); HEMOGLOBIN 11.5 G/DL (12.0-16.0); LYMPHOCYTES % (AUTO) 34.8 % (20.0-45.0); MEAN CORPUSCULAR VOLUME 80 FL (80-99); MONOCYTES % (AUTO) 10.5 % (1.0-10.0); NEUTROPHILS % (AUTO) 51.5 % (45.0-75.0); PLATELET COUNT 177 K/UL (150-450); RED BLOOD COUNT 3.89 M/UL (4.20-5.40); RED CELL DISTRIBUTION WIDTH 9.6 % (11.6-14.8); WHITE BLOOD COUNT 6.3 K/UL (4.8-10.8)
[2020-01-21 08:38] VITALS: BP 143/77
[2020-01-21] MEDS: Aspirin Baby 81mg ORAL SCH (09:56)
[2020-01-21 11:59] VITALS: BP 147/79
--- NOTE | 2020-01-21 12:13 | Discharge Instructions ---
Discharge Instructions Discharge Instructions Follow up with: PCP in 1-2 weeks for BP check and medications Diet: 2 GM sodium (low sodium) Resume Normal Activity?: Yes Activity: resume normal activities, as tolerated Return to Work/School on: Jan 23, 2020 For Surgical Patients May shower: Yes For Congestive Heart Failure Reminder Report to your physician any weight gain of 5 pounds or more in one week. Shanita Tristan MD Jan 21, 2020 12:13
--- NOTE | 2020-01-21 12:13 | Discharge Instructions ---
Discharge Instructions Discharge Instructions Special Instructions STOP USING COCAINE For Congestive Heart Failure Reminder Report to your physician any weight gain of 5 pounds or more in one week. Shanita Tristan MD Jan 21, 2020 12:13
--- NOTE | 2020-01-21 12:18 | Discharge Summary ---
Discharge Summary Hospital Course Date of Admission January 17, 2020 at 22:17 Date of Discharge january 21, 2020 Admitting Diagnosis ACUTE STROKE HPI Josiane Chin is a 54 year old female who was admitted on January 17, 2020 at 22:17 for Acute Stroke in the setting of prior cocaine use. Consultations Dr. Villalba was asked to consult. Procedures none Hospital Course 54-year-old female # CVA with slurred speech in the setting of prior cocaine use PT evaluation was completed and cleared. ST evaluation completed and able to tolerate all textures in diet. MRI brain: Impression: Cluster of acute infarcts in the right basal ganglia, right centrum semiovale parietal operculum, and parietal cortex. - CT head is negative and normal TTE with normal EF 65% and normal valvular function. ASA will be continued at 81 mg daily Add Atorvastatin 10 mg qhs for LDL 96 ( goal less than 70 due to CVA) A1c normal. # Hypertensive heart disease Patient ran out of her home medication ( Atenolol 50 mg and Clonidine 0.1 mg ) Resumed Atenolol 50 mg daily and Clonidine 0.1 mg daily. SBP in the 140 range at this time and will continue this BP regimen with instructions to follow up with PCP in 1-2 weeks Monitor SBP and goal < 140 mmHg prior to dc. # Cocaine use Education provided patient agreed not to use cocaine again # CKD stage 2 due to Hypertension # Hypertensive nephropathy. Creatinine 1.9 improved to 1.4 at the time of discharge. FULL CODE Discharge Medications Continued Medications: Albuterol Sulfate* (Albuterol Sulfate Mdi*) 8.5 Gm Hfa.aer.ad 2 PUFF INH Q6H, #1 EA 0 Refills Atenolol* (Tenormin*) 50 Mg Tablet 50 MG ORAL DAILY Clonidine Hcl* (Catapres*) 0.1 Mg Tablet 0.1 MG ORAL EVERY 12 HOURS, #60 TAB Discontinued Medications: Atenolol* (Tenormin*) 50 Mg Tablet 50 MG ORAL DAILY, #30 TAB Cephalexin* (Keflex*) 500 Mg Capsule 500 MG ORAL EVERY 6 HOURS, #28 CAP Hydrochlorothiazide* (Hydrochlorothiazide*) 12.5 Mg Capsule Unknown Dose ORAL DAILY, CAP Hydrocodone/Acetaminophen 5-325* (Hydrocodone/Acetaminophen 5-325*) 1 Each Tablet 1 TAB ORAL Q6H PRN for For Pain, #20 TAB 0 Refills Trimethoprim/Sulfamethoxazole 160/800* (Bactrim Ds Tablet*) 1 Each Tablet 1 TAB ORAL Q12H, #14 TAB 0 Refills Discharge Condition Upon Discharge: stable Discharge Vital Signs Last Vital Signs Date Time Temp Pulse Resp B/P (MAP) Pulse Ox O2 Delivery O2 Flow Rate FiO2 01/21/20 11:59 97.5 61 20 147/79 (101) 97 01/21/20 08:42 Room Air Discharge Disposition Patient was discharged to home Discharge Diagnoses: (1) Hypertension (2) Renal insufficiency (3) CVA (cerebral vascular accident) (4) Stroke Discharge Instructions Discharge Instructions Follow up with: PCP in 1-2 weeks for BP check and medications Activity: resume normal activities, as tolerated May Return to Work/School On: Jan 23, 2020 For Surgical Patients May shower: Yes Shanita Tristan MD Jan 21, 2020 12:18
== END 2020-01-21 14:20 | disposition home health service (06) | DRG 45 ==
LOC: EDBD 20:55 → EMR 21:00 → 2E 22:17 → EDBEDREQ 22:47 → 2E 23:46
DX: I63.89 Other cerebral infarction (principal); R47.81 Slurred speech; I13.0 Hypertensive heart and chronic kidney disease with heart failure and stage 1 through stage 4 chronic kidney disease, or unspecified chronic kidney disease; N18.2 Chronic kidney disease, stage 2 (mild); F14.10 Cocaine abuse, uncomplicated
CPT/HCPCS: 36415; 70450; 70551; 71045; 80048; 80053; 80061; 80307; 81003; 82043; 83036; 83735; 83880; 84443; 84484; 85007; 85025; 85610; 85730; 87086; 87181; 93005; 93306; 96360; 99291; J7030

== ENCOUNTER 2020-09-22 17:23 | Emergency (ER) | payer MEDICAID ==
[~2020-09-22] VITALS: Ht 170.2 cm; Wt 61.2 kg
--- NOTE | 2020-09-22 17:54 | Emergency Room Report ---
History of Present Illness General Chief Complaint: Flu Like Symptoms Source: Patient (Kayla Smith) Present Illness HPI 54 YO female with history of CVA approximately 1 year ago in December 2019 presents to the emergency department complaining of body aches/joint pain, cough and chills since Monday. Patient reports that her father who is 81 tested positive for Covid. 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 She denies actual measured fevers. She denies nausea vomiting. She denies chest pain, palpitations, dizziness, shortness of breath, wheezing, headache, neck pain/stiffness or sore throat. Patient denies mucus production. She reports she was a previous smoker up until December of last year. She reports history of hypertension and states that she takes 2 medications for that. She also reports that she takes aspirin 81 mg daily. (Kayla Smith) Allergies: Coded Allergies: No Known Allergies (Unverified , 01/31/19) COVID-19 Screening Contact w/high risk pt: Yes Recent Travel to affected area: No Experienced COVID-19 symptoms?: Yes COVID-19 symptoms experienced: Cough COVID-19 Testing performed HAY STACKER: No (Kayla Smith) Patient History Past Medical History: see triage record, HTN, CVA/TIA Past Surgical History: none Pertinent Family History: none Now: No Reviewed Nursing Documentation: PMH: Agreed; PSxH: Agreed (Kayla Smith) Nursing Documentation-PMH Past Medical History: No History, Except For Hx Cardiac Problems: Yes Hx Hypertension: Yes Hx COPD: No - bronchitis Hx Cancer: No Hx Gastrointestinal Problems: Yes Hx Neurological Problems: No (Kayla Smith) Review of Systems All Other Systems: negative except mentioned in HPI (Kayla Smith) Physical Exam Vital Signs Date Time Temp Pulse Resp B/P (MAP) Pulse Ox O2 Delivery O2 Flow Rate FiO2 09/22/20 17:31 99.3 91 17 114/76 (89) 95 Room Air Sp02 EP Interpretation: reviewed, normal General Appearance: no apparent distress, alert, GCS 15, non-toxic Head: normocephalic, atraumatic Eyes: bilateral eye normal inspection, bilateral eye PERRL ENT: hearing grossly normal, normal voice Neck: full range of motion Respiratory: chest non-tender, lungs clear, normal breath sounds, no respiratory distress, no accessory muscle use, no wheezing, speaking full sentences Cardiovascular #1: regular rate, rhythm, no edema, normal capillary refill Musculoskeletal: back normal, normal range of motion, gait/station normal, non- tender Neurologic: alert, motor strength/tone normal, oriented x3, sensory intact, responsive, speech normal Psychiatric: judgement/insight normal Skin: no rash, normal color Lymphatic: no adenopathy (Kayla Smith) Medical Decision Making PA Attestation Dr. Orozco Is my supervising Physician whom patient management has been discussed with. (Kayla Smith) Diagnostic Impression: Primary Impression: Upper respiratory infection, viral ER Course 54 YO female with history of CVA approximately 1 year ago in December 2019 presents to the emergency department complaining of body aches/joint pain, cough and chills since Monday. Patient reports that her father who is 81 tested positive for Covid. 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 She denies actual measured fevers. She denies nausea vomiting. She denies chest pain, palpitations, dizziness, shortness of breath, wheezing, headache, neck pain/stiffness or sore throat. Patient denies mucus production. She reports she was a previous smoker up until December of last year. She reports history of hypertension and states that she takes 2 medications for that. She also reports that she takes aspirin 81 mg daily. Ddx considered but are not limited to URI, pneumonia, PE, strep pharyngitis, meningitis, COVID-19 Vital signs: Pt. is afebrile, the remaining VS are WNL H&PE are most consistent with URI- no meningeal signs, oropharynx is not involved, no evidence of bacterial infection at this time. ORDERS: -CXR: WNL - COVID-19 : Pending ED INTERVENTIONS: None required at this time. This patient was evaluated in the context of the global COVID-19 pandemic, which necessitated consideration that the patient might be at risk for infection with the SARS-COV-2 virus that causes COVID-19. Institutional protocols and algorithms that pertaining to the evaluation of patients at risk for COVID-19 are in a state of rapid change based on information released by multiple regula tory bodies including the CDC and federal and state organizations. These policies and algorithms were followed during the patient's care in the emergency department. DISCHARGE: At this time pt. is stable for d/c to home. Will provide printed patient care instructions, and any necessary prescriptions. Care plan and follow up instructions have been discussed with the patient prior to discharge. (Kayla Smith) ER Course Patient's coronavirus test returned positive, patient was called and I did discuss her result with the patient. She states she is currently feeling okay. She was given return precautions. (Seven Whitfield M.D.) Chest X-Ray Diagnostic Results Chest X-Ray Diagnostic Results : Chest X-Ray Ordered: Yes # of Views/Limited/Complete: 1 View Indication: Chest Pain EP Interpretation: Yes PA Xray: Interpretation reviewed, by supervising MD, and agrees with findings. Interpretation: no consolidation, no effusion, no pneumothorax, no acute cardiopulmonary disease Impression: No acute disease Electronically Signed by: Kayla Smith PA-C (Kayla Smith) Last Vital Signs Date Time Temp Pulse Resp B/P (MAP) Pulse Ox O2 Delivery O2 Flow Rate FiO2 09/22/20 17:31 99.3 91 17 114/76 (89) 95 Room Air Status: improved (Kayla Smith) Disposition: HOME, SELF-CARE Condition: Stable Scripts Acetaminophen* (TYLENOL EXTRA STRENGTH*) 500 Mg Tablet 500 MG ORAL Q6H, #20 TAB Prov: Kayla Smith 09/22/20 D-Methorphan Hb/Prometh Hcl* (PROMETHAZINE-DM SYRUP*) 118 Ml Syrup 5 ML ORAL Q6H PRN for For Cough, #120 ML 0 Refills Prov: Kayla Smith 09/22/20 Departure Forms: Return to Work Return to Work Date: Sep 26, 2020 Work Restrictions: None Patient Instructions: Upper Respiratory Infection, Adult, [id number] Additional Instructions: Take medications as directed. Follow up with a Primary Care Provider in 3-5 days, even if your symptoms have resolved. --Please review list of primary care clinics, if you do not already have a primary care provider Return sooner to ED if new symptoms occur, or current symptoms become worse. - Please note that this Emergency Department Report was dictated using [employer] assembler technology software, occasionally this can lead to erroneous entry secondary to interpretation by the dictation equipment. Kayla Smith Sep 22, 2020 17:54 Seven Whitfield M.D. Sep 24, 2020 07:59
--- NOTE | 2020-09-22 17:56 | NUR ---
ED Nurse Note: Pt walked into ED for bodyaches, chills, fever since Monday. She denies nausea, vomiting. She has recently been around dad who is CoVID +. She is alert&ox4, amb. She has been seen by DEE DEE.
[2020-09-22 17:58] VITALS: BP 112/72
--- NOTE | 2020-09-22 18:00 | NUR ---
ED Nurse Note: COVID swab sent to lab.
[2020-09-22] MEDS ORDERED: ACETAMINOPHEN500 MG ORAL (18:34)
[2020-09-22] MEDS ORDERED: PROMETHAZINE-D118 ML ORAL (18:34)
--- NOTE | 2020-09-22 18:43 | NUR ---
ER DISCHARGE NOTE: Patient is cleared to be discharged per ERMD, pt is aox4, on room air, with stable vital signs. pt was given dc and prescription instructions, pt was able to verbalize understanding, pt id band removed. pt is able to ambulate with steady gait. pt took all belongings.
[2020-09-22 18:44] VITALS: BP 114/76
--- NOTE | 2020-09-23 11:17 | Diagnostic Imaging Report ---
Indication: Chest pain Technique: XRAY Chest 1v Comparison: 01/17/2020 Findings: Heart size and mediastinal contours are within normal limits for AP technique. There is no focal airspace consolidation, pneumothorax or pleural effusion. Osseous structures demonstrate no acute abnormality. Impression: No radiographic evidence of acute cardiopulmonary disease.
== END 2020-09-22 18:43 | disposition home or self-care (01) ==
LOC: EMR 17:52
DX: J06.9 Acute upper respiratory infection, unspecified (principal); I11.9 Hypertensive heart disease without heart failure; Z86.73 Personal history of transient ischemic attack (TIA), and cerebral infarction without residual deficits
CPT/HCPCS: 71045; U0004; Z7502; 99283